=== PATIENT | male | born 1995 | race Caucasian/White ===

== ENCOUNTER 2020-07-25 05:05 | Emergency (ER) | payer SELFPAY ==
[2020-07-25 05:12] VITALS: BP 166/111; PULSE 86; RESP 14; TEMP 36.3; O2SAT 98; BMI 32.1
--- NOTE | 2020-07-25 05:15 | ED_ITS ---
HPI - Ear Problem General: Chief complaint: Ear Stated complaint: ear pain both ears/sore throat Time Seen by Provider: 07/25/20 05:13 History of Present Illness: MD Complaint: ear pain and decreased hearing Location: bilateral Duration: constant Severity: moderate Relieving factors: nothing Exacerbating factors: nothing Context: recent illness Associated symptoms: Reports ear or mastoid pain, hearing loss and tinnitus; Denies fever(s), headache(s), neck pain or rhinorrhea Treatment prior to arrival: none Review of Systems Const: Denies: fever(s), chills or body aches Eyes: Denies: change in vision ENMT: Reports: odynophagia, ear or mastoid pain, change in hearing, tinnitus and nasal congestion; Denies: hoarseness, swelling of lips/tongue, dental pain or disequilibrium Card: Denies: chest pain or palpitations Resp: Reports: non-productive cough; Denies: dyspnea, productive cough or wheezing Musc: Denies: neck pain Neuro: Denies: headache(s) Physical Exam Const: GENERAL APPEARANCE: well developed ORIENTATION/CONSCIOUSNESS: Yes oriented to person, Yes oriented to place and Yes oriented to time HENMT: COMMON NORMALS: normocephalic, external ears normal and Normal external nose present HEAD & SCALP: normocephalic FACE & SINUS: normal facial exam NOSE: Normal external nose present and No nasal discharge present EXTERNAL EAR: Yes external ears normal TYMPANIC MEMBRANE: TM abnormal TM laterality: right Details: bulging and erythematous and left Details: erythematous, fluid behind TM and perforation Details: with bloody discharge MOUTH: tongue normal TEETH & GINGIVA: no abnormal tooth and associated gingiva THROAT: posterior oropharynx normal; no peritonsillar mass Eye: COMMON NORMALS: EOMs intact bilaterally and conjunctivae normal EYELID: eyelids normal CONJUNCTIVA: Yes conjunctivae normal Neck/C-Spine: GENERAL: No tracheal deviation Chest: COMMONS NORMALS: normal inspection of the chest CHEST: No tenderness Resp: COMMON NORMALS: clear to auscultation bilaterally EFFORT & INSPECTION: No tachypneic, No respiratory distress, No retractions, No uses accessory muscles and No tracheal deviation AUSCULTATION: clear to auscu ltation bilaterally, no rhonchi, no wheezes and lung sounds not diminished Cardio: COMMON NORMALS: regular rate and regular rhythm RATE: regular rate RHYTHM: regular rhythm HEART SOUNDS: no murmurs PERIPHERAL PULSES: radial pulses present GI: INSPECTION: No abdominal distension Neuro: SENSORIUM/ORIENTATION: Yes oriented to person, Yes oriented to place and Yes oriented to time Psych: COMMON NORMALS: mental status grossly normal Skin: COMMON NORMALS: no rashes or lesions noted GENERAL SKIN EXAM: no rashes or lesions noted Course Vital Signs: Vital signs: Vital Signs Temperature 97.3 F L 07/25/20 05:12 Pulse Rate 86 07/25/20 05:12 Respiratory Rate 14 07/25/20 05:12 Blood Pressure 166/111 07/25/20 05:12 Pulse Oximetry 98 07/25/20 05:12 Discharge Plan Discharge Patient Disposition: Home Clinical Impression: Otitis media Qualifiers: Otitis media type: serous Chronicity: acute Laterality: bilateral Recurrence: non-recurrent Qualified Code(s): H65.03 - Acute serous otitis media, bilateral Condition: Stable Prescriptions: New amoxicillin-pot clavulanate 875-125 mg tablet 1 tab PO BID Qty: 20 RF: 0 ketorolac 10 mg tablet 10 mg PO TID PRN (Reason: pain) Qty: 10 RF: 0 Discharge Orders: Discharge Order (Routine); Ordered 07/25/20 Ordered By: Jose Alberto Grimm Referrals: Melissa Palacios FNP [Primary Care Provider] - 4-7 days Discharge Diet: Usual diet Discharge Activity: Resume usual activity Patient Instructions: Otitis Media (ED) Activity Restrictions/Additional Instructions: Return for fever greater than 100 despite 2-3 doses of antibiotics, worsening pain despite treatment, worsening hearing. Follow-up with your PCP in several days for recheck. Coding Level of Care Code ED Distributor Of Directories for Chg Fwd Exam Comprehensive
[2020-07-25] MEDS: amoxicillin-clav 875-125 mg Tablet 1 TAB PO (06:18)
[2020-07-25] MEDS: dexamethasone 4 mg Tablet 10 MG PO (06:18)
[2020-07-25 06:22] VITALS: BP 132/96; PULSE 91; RESP 16; O2SAT 98
== END 2020-07-25 06:23 | disposition home or self-care (01) ==
PROVIDERS: Emergency Provider Emergency Medicine; PCP Nurse Practitioner
DX: H65.03 Acute serous otitis media, bilateral (principal)
CPT/HCPCS: 12345; 99282; 99283; J8540

== ENCOUNTER 2022-02-13 10:52 | Emergency (ER) | payer SELFPAY ==
[2022-02-13 11:04] VITALS: BP 136/91; PULSE 82; RESP 16; TEMP 37; O2SAT 98; BMI 27.2
--- NOTE | 2022-02-13 11:09 | ECG_ITS ---
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 Measurements Intervals [place] Rate: 66 P: 38 NV: 169 QRS: 42 QRSD: 97 T: 50 QT: 357 QTc: 375 Interpretive Statements SINUS RHYTHM NONSPECIFIC T-WAVE ABNORMALITY Compared to ECG 02/03/2017 22:10:36 No significant changes Electronically Signed On 02-13-2022 17:58:37 CDT by Gage Jimenez M.D. [id number]
--- NOTE | 2022-02-13 11:09 | XR_ITS ---
WS: [id number] PORTABLE CHEST HISTORY: chest pain COMPARISON: 02/03/2017 Lungs are clear and well expanded. No pleural effusion or pneumothorax. Cardiac size: Normal. Mediastinum/Aorta: Normal mediastinum. No osseous abnormality seen. XR/XR chest 1V portable [id number] IMPRESSION: Unremarkable portable chest.
[2022-02-13 12:07] VITALS: BP 128/68; PULSE 68; RESP 18; TEMP 36.8; O2SAT 99
--- NOTE | 2022-02-13 12:11 | ED_ITS ---
Documented by User: LUIS ALBERTO Finley 02/13/22 12:47 HPI - Chest Pain General: Chief Complaint: Chest Pain Stated Complaint: chest pain Time Seen by Provider: 02/13/22 12:08 Source: patient Mode of arrival: ambulatory Limitations: no limitations History of Present Illness: Patient is a 26-year-old male who presents to ED today for evaluation of chest pain. Patient states chest pain began approximately 6 days ago while at rest and was located to his right upper chest. Patient states over the past 6 days it has moved more substernally and into his left chest. He states his arms feel sore . 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 Patient does state his chest pain is worse with movement of his upper extremities/shoulders. He states while at work his chest pain is fairly constant but states while at home and at rest it seems to wax and wane. He will often have periods of pain-free while at home. Other provoking factors include deep inspiration. He does not feel short of breath. He does not complain of a racing heart rate, palpitations, lightheadedness/dizziness, or presyncopal feelings. No previous cardiac or pulmonary history. No family history of young heart disease. Patient is not having any swelling or pain to his lower extremities. MD complaint: chest pain Onset (ago): day(s) Timing of current episode: episodic Prior episodes: No Onset: during rest Pain location: substernal, left chest and right chest Pain radiation: right arm and left arm Exacerbating factors: inspiration, palpation and movement Associated symptoms: Reports no associated symptoms; Deny abdominal pain, dyspnea, fever(s), palpitations or syncope Treatment prior to arrival: none Risk Factors: Coronary artery disease risk factors: none Thoracic aortic dissection risk factors: none Review of Systems Const: Denies: fever(s), chills, body aches, fatigue or malaise Card: Reports: chest pain; Denies: palpitations, irregular heart rhythm, edema, swelling of feet/ankles, lightheadedness, syncope, pre-syncope, dyspnea on exertion, orthopnea, leg pain with exertion or acrocyanosis Resp: Reports: pain on inspiration; Denies: dyspnea, productive cough, non-productive cough, wheezing, stridor, change in phlegm color, hemoptysis or chest congestion GI: Denies: abdominal pain Musc: Denies: neck pain or back pain Neuro: Denies: headache(s), numbness in extremities, weakness in extremities, sensory changes or dizziness Physical Exam Const: COMMON NORMALS: no acute distress, average body habitus, patient oriented x3, no limitations, healthy appearing, alert and well nourished GENERAL APPEARANCE: cooperative ORIENTATION/CONSCIOUSNESS: Yes awake, Yes oriented to person, Yes oriented to place and Yes oriented to time HENMT: COMMON NORMALS: normocephalic and atraumatic HEAD & SCALP: normal to inspection, normocephalic and atraumatic Neck/C-Spine: COMMON NORMALS: no JVD and No carotid bruits Chest: COMMONS NORMALS: normal inspection of the chest OTHER: patient does have fairly reproducible chest pain with palpation of his R chest/sternum; pain also seems to be elicited with ROM of shoulders Resp: COMMON NORMALS: normal respiratory effort and clear to auscultation bilaterally AUSCULTATION: clear to auscultation bilaterally Cardio: COMMON NORMALS: no JVD, regular rate and regular rhythm RATE: regular rate RHYTHM: regular rhythm GI: COMMON NORMALS: Normal to inspection, nondistended, normoactive bowel sounds present, Soft to palpation, non-tender and no masses PALPATION: Yes Soft to palpation Back/Pelvis: COMMON NORMALS: thoracic and lumbar spine normal to inspection, no thoracic nor lumbar tenderness and thoraco-lumbar ROM normal Extremity: COMMON NORMALS: normal to inspection, full ROM, capillary refill normal, no joint enlargement, no clubbing, cyanosis or edema, no calf tenderness and no pedal edema GENERAL: Yes normal exam except as noted Neuro: MACHO COMA SCALE: document GCS findings [place] coma scale eye opening: Spontaneous Macho coma scale verbal response: Orientated Macho coma scale motor response: Obey commands Macho coma scale total score: 15 COMMON NORMALS: patient oriented x3, moves all extremities, no focal motor deficits and no sensory deficits noted SENSORIUM/ORIENTATION: Yes alert, Yes oriented to person, Yes oriented to place and Yes oriented to time Skin: COMMON NORMALS: no rashes or lesions noted GENERAL SKIN EXAM: no rashes or lesions noted Course Vital Signs: Vital signs: Vital Signs Temperature 98.5 F 02/13/22 12:38 Pulse Rate 68 02/13/22 12:38 Respiratory Rate 18 02/13/22 12:38 Blood Pressure 122/71 02/13/22 12:38 Pulse Oximetry 99 02/13/22 12:38 MDM - Chest Pain Medical Decision Making Patient appears in no acute distress. His vital signs are perfect. EKG is normal. CXR is unremarkable. Chest pain is fairly reproducible on physical exam. History does not reveal any red flags for life-threatening etiology for chest pain. Wells score of 0. HEART score of 0. At this time I do not have any suspicion for cardiac ischemia, PE, dissection, aneurysm, or other emergent process at this time. Recommend ice/heat, NSAIDS and we will have CM set him up with a PCP for further evaluation if pain persists. Return to ED precautions verbally discussed with patient. Lab Data Radiology Impressions Chest X-Ray 02/13/22 11:09 IMPRESSION: Unremarkable portable chest. EKG Data EKG 1: EKG interpretation date: 02/13/22 EKG interpretation time: 12:14 Interpretation: Sinus rhythm Rate [address] elevation or depression changes noted Discharge Plan Discharge Patient Disposition: Home Clinical Impression: Atypical chest pain Condition: Stable Prescriptions: No Action No Known Home Medications 0RF Discharge Orders: Discharge ED (Routine); Ordered 02/13/22 Ordered By: Lary Bain Referrals: Melissa Palacios FNP [Primary Care Provider] - Coding Level of Care Code ED Corrugator Supervisor for Chg Fwd Exam Comprehensive Documented by User: Roel Mccarty MD 02/20/22 12:14 HPI - Chest Pain General: Chief Complaint: Chest Pain Stated Complaint: chest pain Time Seen by Provider: 02/13/22 12:08 Physical Exam Neuro: MACHO COMA SCALE: document GCS findings Macho coma scale total score: 15 Course Vital Signs: Vital signs: Vital Signs Temperature 98.5 F 02/13/22 12:38 Pulse Rate 68 02/13/22 12:38 Respiratory Rate 18 02/13/22 12:38 Blood Pressure 122/71 06/07/22 12:38 Pulse Oximetry 99 02/13/22 12:38 MDM - Chest Pain Medical Decision Making Patient appears in no acute distress. His vital signs are perfect. EKG is normal. CXR is unremarkable. Chest pain is fairly reproducible on physical exam. History does not reveal any red flags for life-threatening etiology for chest pain. Wells score of 0. HEART score of 0. At this time I do not have any suspicion for cardiac ischemia, PE, dissection, aneurysm, or other emergent p rocess at this time. Recommend ice/heat, NSAIDS and we will have CM set him up with a PCP for further evaluation if pain persists. Return to ED precautions verbally discussed with patient. Dr. Mccarty - Patient evaluation, diagnosis, and management was performed independently by Lary Bain. I did not personally see the patient nor staff the patient with patient's provider. I did review the patient's note today and I believe this note is consistent. Lab Data Radiology Impressions Chest X-Ray 02/13/22 11:09 IMPRESSION: Unremarkable portable chest. Discharge Plan Discharge Patient Disposition: Home Clinical Impression: Atypical chest pain Condition: Stable Prescriptions: No Action No Known Home Medications 0RF Discharge Orders: Discharge ED (Routine); Ordered 02/13/22 Ordered By: Lary Bain Referrals: Melissa Palacios MATERIAL HANDLER [Primary Care Provider] - Coding Level of Care Code ED Corrugator Supervisor for Chg Fwd Exam Comprehensive
[2022-02-13 12:38] VITALS: BP 122/71; PULSE 68; RESP 18; TEMP 36.9; O2SAT 99
--- NOTE | 2022-02-14 09:35 | DCPLANNER ---
manager ob had message to speak with patient about getting established with a primary care physician. manager ob called phone number [phone], unable to speak with patient at this time, and unable to leave a voicemail.
== END 2022-02-13 12:42 | disposition home or self-care (01) ==
PROVIDERS: Emergency Provider Physician Assistant; PCP Nurse Practitioner
DX: R07.89 Other chest pain (principal)
CPT/HCPCS: 71045; 93005; 99283

== ENCOUNTER 2023-02-19 07:33 | Emergency (ER) | payer SELFPAY ==
[2023-02-19 07:47] VITALS: BP 151/91; PULSE 80; RESP 18; TEMP 36.8; O2SAT 94; BMI 25.8
--- NOTE | 2023-02-19 07:56 | ED_ITS ---
HPI - Abdominal Pain General: Chief Complaint: Abdominal Pain Stated Complaint: rt side stomach pains Time Seen by Provider: 02/19/23 07:35 Source: patient and family Mode of arrival: ambulatory History of Present Illness: 27-year-old male presents emergency room with complaint of abdominal pain for the last 2 days. Localizes pain to the right lower quadrant is intermittent in nature denies any vomiting but has had some diarrhea no hematochezia or melena. He has not previously had symptoms like this before no previous abdominal surgeries no dysuria urgency or frequency. No fevers sweats or chills. He has not noticed anything that exacerbates or relieves it. MD elicited complaint: abdominal pain Onset (ago): day(s) (2) Location: RLQ Quality: aching Exacerbating factors: nothing Relieving factors: nothing Associated Symptoms: Reports GI cramping and diarrhea; Denies anorexia, belching, bloating, change in bowel habits, change in stool character, chills, coffee ground emesis, constipation, dyspepsia, dysuria, ex cessive flatus, fever(s), heartburn, hematochezia, hematuria, hematemesis, fecal incontinence, loose stools, melena, nausea, poor appetite and vomiting Review of Systems Const: Denies: fever(s) or chills Card: Denies: chest pain or palpitations Resp: Denies: dyspnea, productive cough or non-productive cough GI: Reports: abdominal pain, diarrhea and GI cramping; Denies: nausea, vomiting, hematemesis, coffee ground emesis, heartburn, constipation, bloating, belching, excessive flatus, fecal incontinence, change in bowel habits, change in stool character, hematochezia or melena : Denies: dysuria, urinary frequency, urinary urgency or hematuria Skin/Breast: Denies: rash or pruritus Physical Exam Const: COMMON NORMALS: no acute distress GENERAL APPEARANCE: cooperative and comfortable ORIENTATION/CONSCIOUSNESS: Yes awake, Yes oriented to person, Yes oriented to place and Yes oriented to time HENMT: COMMON NORMALS: normocephalic, atraumatic and hearing grossly normal bilaterally HEAD & SCALP: normocephalic and atraumatic Resp: COMMON NORMALS: normal respiratory effort, No retractions, No use of accessory muscles and clear to auscultation bilaterally AUSCULTATION: clear to auscultation bilaterally Cardio: COMMON NORMALS: regular rate, regular rhythm and No murmurs present (Cardio) RATE: regular rate RHYTHM: regular rhythm GI: COMMON NORMALS: Soft to palpation and No hepatosplenomegaly present AUSCULTATION: Yes normoactive bowel sounds PALPATION: Yes Soft to palpation, No Tenderness to palpation present (GI), No Guarding due to palpation present (GI) and Yes No hepatosplenomegaly present Extremity: COMMON NORMALS: normal to inspection, capillary refill normal, no clubbing, cyanosis or edema, no calf tenderness and no pedal edema Neuro: SENSORIUM/ORIENTATION: Yes oriented to person, Yes oriented to place and Yes oriented to time Skin: COMMON NORMALS: no rashes or lesions noted GENERAL SKIN EXAM: no rashes or lesions noted Course Vital Signs: Vital signs: Vital Signs Temperature 98.2 F 02/19/23 07:47 Pulse Rate 62 02/19/23 08:34 Respiratory Rate 15 02/19/23 08:34 Blood Pressure 128/77 02/19/23 08:34 Pulse Oximetry 97 02/19/23 08:34 Oxygen Delivery Me thod Room Air 02/19/23 08:34 MDM - Abdominal Pain Medical Decision Making Labs unremarkable. On exam there are no peritoneal signs. Tylenol or ibuprofen as needed clear liquid diet for 24 to 40 hours advance as tolerated if has any worsening of symptoms or change or hematochezia or melena return to the emergency room for reevaluation. Medical Records I reviewed the patient's medical records. Lab Data I reviewed the patient's lab results. 02/19/23 07:59 02/19/23 07:59 Labs/Radiology: Laboratory Results WBC 7.2 10^3/uL (4.0-10.0) 02/19/23 07:59 RBC 5.74 10^6/uL (4.1-5.3) H 02/19/23 07:59 Hgb 16.7 g/dL (11.7-16.6) H 02/19/23 07:59 Hct 49.7 % (42.0-52.0) 02/19/23 07:59 MCV 86.6 fl (80-94) 02/19/23 07:59 MCH 29.1 pg (28.0-34.0) 02/19/23 07:59 MCHC 33.6 g/dL (30.0-36.0) 02/19/23 07:59 RDW 12.5 % (12.1-15.1) 02/19/23 07:59 Plt Count 260 10^3/cmm (130-400) 02/19/23 07:59 MPV 9.6 fL (7.4-10.4) 02/19/23 07:59 Neut % (Auto) 59.6 % 02/19/23 07:59 Lymph % (Auto) 29.3 % 02/19/23 07:59 [place] % (Auto) 7.9 % 02/19/23 07:59 Eos % (Auto) 2.2 % 02/19/23 07:59 Baso % (Auto) 0.7 % 02/19/23 07:59 Neut # (Auto) 4.28 10^3/uL (1.8-7.7) 02/19/23 07:59 Lymph # (Auto) 2.1 10^3/uL (0.8-4.8) 02/19/23 07:59 [place] # (Auto) 0.6 10^3/uL (0.2-0.9) 02/19/23 07:59 Eos # (Auto) 0.2 10^3/uL (0.0-0.8) 02/19/23 07:59 Baso # (Auto) 0.1 10^3/uL (0.0-0.1) 02/19/23 07:59 Nucleated RBC % (auto) 0 % 02/19/23 07:59 Nucleated RBCs # 0.0 /100WBC 02/19/23 07:59 Sodium 141 mmol/L (136-145) 02/19/23 07:59 Potassium 4.0 mmol/L (3.5-5.1) 02/19/23 07:59 Chloride 103 mmol/L (98-107) 02/19/23 07:59 Carbon Dioxide 28 mmol/L (22-29) 02/19/23 07:59 Anion Gap 14.0 (5-19) 02/19/23 07:59 BUN 14 mg/dL (6-20) 02/19/23 07:59 Creatinine 1.0 mg/dL (0.7-1.2) 02/19/23 07:59 Glucose 89 mg/dL (65-115) 02/19/23 07:59 Calculated Osmolality 292 mOsm/kg (285-295) 02/19/23 07:59 Calcium 9.5 mg/dL (8.5-10.5) 02/19/23 07:59 Total Bilirubin 0.4 mg/dL (0.15-1.2) 02/19/23 07:59 AST 17 U/L (0-40) 02/19/23 07:59 ALT 12 U/L (0-41) 02/19/23 07:59 Alkaline Phosphatase 109 U/L (40-130) 02/19/23 07:59 Total Protein 7.4 g/dL (6.6-8.7) 02/19/23 07:59 Albumin 4.8 g/dL (3.5-5.2) 02/19/23 07:59 Globulin 2.6 g/dL (1.3-4.6) 02/19/23 07:59 Lipase 25 U/L (13-60) 02/19/23 07:59 Urine Color Yellow (Yellow) 02/19/23 07:50 Urine Appearance Clear (CLEAR) 02/19/23 07:50 Urine pH 6 (5-7) 02/19/23 07:50 Ur Specific Mccoll 1.015 (1.005-1.030) 02/19/23 07:50 Urine Protein Neg (Negative) 02/19/23 07:50 Urine Glucose (UA) Norm (Normal) 02/19/23 07:50 Urine Ketones Negative (Negative) 02/19/23 07:50 Urine Blood Neg (Negative) 02/19/23 07:50 Urine Nitrate Negative (Negative) 02/19/23 07:50 Urine Bilirubin Neg (Negative) 02/19/23 07:50 Urine Urobilinogen Norm mg/dL (Negative) 02/19/23 07:50 Ur Leukocyte Esterase Negative (Negative) 02/19/23 07:50 Discharge Plan Discharge Patient Disposition: Home Clinical Impression: Gastroenteritis Condition: Stable Prescriptions: New ondansetron HCl 4 mg tablet 4 mg PO Q6H PRN (Reason: nausea and vomiting) Qty: 20 0RF No Action Excedrin Migraine 250-250-65 mg Tablet 2 tab PO Q6H PRN (Reason: Migraine Headache) Discharge Orders: Discharge ED (Routine); Ordered 02/19/23 Ordered By: Tera Dey Referrals: Melissa Palacios FNP [Primary Care Provider] - Discharge Diet: Clear Liquid Discharge Activity: Increase activity as tolerated Patient Instructions: Opioid Safety, Pain Management Activity Restrictions/Additional Instructions: You are seen today for abdominal pain your laboratory studies were unremarkable. Your exam does not show any acute abdominal findings at this point. Recommend that you follow clear liquid diet for next 24 to 48 hours and advance as tolerated symptoms worsen or change return to the emergency room. Coding Level of Care Code ED Police Captain Senior for Erica Elam
[2023-02-19] MEDS: sodium chloride 0.9% 1,000 ML 999 ML IV (08:08)
[2023-02-19 08:09] LABS: Basophils # 0.1 10^3/uL (0.0-0.1); Basophils % 0.7 %; Eosinophils # 0.2 10^3/uL (0.0-0.8); Eosinophils % 2.2 %; Hematocrit 49.7 % (42.0-52.0); Hemoglobin 16.7 g/dL (11.7-16.6); Lymphocytes # 2.1 10^3/uL (0.8-4.8); Lymphocytes % 29.3 %; Mean Corpuscular HGB Conc 33.6 g/dL (30.0-36.0); Mean Corpuscular Hemoglobin 29.1 pg (28.0-34.0); Mean Corpuscular Volume 86.6 fl (80-94); Mean Platelet Volume 9.6 fL (7.4-10.4); Monocytes # 0.6 10^3/uL (0.2-0.9); Monocytes % 7.9 %; Neutrophils # 4.28 10^3/uL (1.8-7.7); Neutrophils % 59.6 %; Nucleated Red Blood Cells % 0 %; Platelet Count 260 10^3/cmm (130-400); Red Blood Count 5.74 10^6/uL (4.1-5.3); Red Cell Distribution Width 12.5 % (12.1-15.1); White Blood Count 7.2 10^3/uL (4.0-10.0)
[2023-02-19] MEDS: ondansetron 2 mg/ML SDV 2 mL 4 MG IVP (08:09)
[2023-02-19 08:11] VITALS: BP 133/90; PULSE 78; RESP 16; O2SAT 96
[2023-02-19 08:19] LABS: Add Urine Microscopic? NO; Charge for UA Resulting for Rev
[2023-02-19 08:34] VITALS: BP 128/77; PULSE 62; RESP 15; O2SAT 97
[2023-02-19 08:35] LABS: Specific Gravity, Urine 1.015 (1.005-1.030); Urine Appearance Clear (CLEAR); Urine Color Yellow (Yellow); pH Urine 6 (5-7)
[2023-02-19 08:36] LABS: Bilirubin Urine Neg (Negative); Blood Urine Neg (Negative); Glucose Urine UA Norm (Normal); Ketones Urine Negative (Negative); Leukocyte Esterase Urine Negative (Negative); Nitrate Urine Negative (Negative); Protein Urine Neg (Negative); Urobilinogen Urine Norm (Negative)
[2023-02-19 08:44] LABS: Alanine Aminotransferase 12 U/L (0-41); Albumin Level 4.8 g/dL (3.5-5.2); Alkaline Phosphatase 109 U/L (40-130); Aspartate Amino Transferase 17 U/L (0-40); Blood Urea Nitrogen 14 mg/dL (6-20); Calcium 9.5 mg/dL (8.5-10.5); Carbon Dioxide 28 mmol/L (22-29); Chloride 103 mmol/L (98-107); Creatinine Clr Calc Pharmacy 118.9359; Globulin 2.6 g/dL (1.3-4.6); Glucose 89 mg/dL (65-115); Lipase 25 U/L (13-60); Osmolality Calculated 292 mOsm/kg (285-295); Sodium 141 mmol/L (136-145); Total Bilirubin 0.4 mg/dL (0.15-1.2); Total Protein 7.4 g/dL (6.6-8.7)
[2023-02-19 09:04] VITALS: BP 128/77; PULSE 62; RESP 15; O2SAT 97
== END 2023-02-19 09:06 | disposition home or self-care (01) ==
PROVIDERS: Physician Assistant; Emergency Provider Family Medicine; PCP Nurse Practitioner
DX: K52.9 Noninfective gastroenteritis and colitis, unspecified (principal)
CPT/HCPCS: 80053; 81003; 83690; 85025; 96361; 96374; 99284; J2405; J7030